=== PATIENT | male | born 1975 | race Caucasian/White ===

== ENCOUNTER 2025-01-19 10:13 | Emergency (ER) | payer OTHER ==
[~2025-01-19] VITALS: Ht 167.6 cm; Wt 68.2 kg
[~2025-01-19 10:13] MED LIST: CEPH-558 PO; OMEP-148 PO; SULF1TAB94 PO
[2025-01-19 10:18] VITALS: TEMP 98.2
[2025-01-19 10:50] LABS: COVID AG,FIA SOURCE NASAL SWAB
[2025-01-19 10:54] LABS: PLATELET COUNT (AUTO) 392 K/uL (150-450); RED BLOOD CELL COUNT(AUTO) 5.33 MIL/uL (4.50-5.90); RED CELL DISTRIBUTION WIDTH 13.6 % (11.5-14.5); WHITE BLOOD COUNT (AUTO) 7.4 K/uL (4.5-11.0)
[2025-01-19 10:54] LABS: APPEARANCE,URINE CLEAR (CLEAR); GLUCOSE, URINE (UA) NEGATIVE (NEGATIVE); LEUKOCYTE ESTERASE ,URINE NEGATIVE (NEGATIVE); NITRATE,URINE NEGATIVE (NEGATIVE); OCCULT BLOOD,URINE TRACE (NEGATIVE); SPECIFIC GRAVITIY, URINE 1.030 (1.003-1.030)
[2025-01-19 11:04] LABS: CALCIUM, TOTAL 9.3 mg/dL (8.8-10.5); CREATININE 1.02 mg/dL (0.60-1.30); GLOMERULAR FILTR. RATE CALC > 60 mL/min (>60); GLUCOSE,RANDOM 163 mg/dL (70-110); SODIUM SERUM 139 mmol/L (136-145); UREA NITROGEN, BLOOD 17 mg/dL (7-18)
[2025-01-19 11:35] LABS: SARS-COV2 (COVID) ANTIGEN,FIA Negative (Negative)
[2025-01-19 11:36] LABS: INFLUENZA TYPE A NEGATIVE FOR TYPE A (NEGATIVE); INFLUENZA TYPE B NEGATIVE FOR TYPE B (NEGATIVE)
[2025-01-19 11:48] VITALS: BP 127/87; PULSE 90; RESP 18; O2SAT 100
[2025-01-19] MEDS: IBUPROFEN 400 MG TABLET PO ONE (11:51)
[2025-01-19] MEDS: ACETAMINOPHEN 500 MG TABLET PO ONE (11:51)
== END 2025-01-19 12:22 | disposition home or self-care (01) ==
LOC: EMS 10:13
DX: J06.9 Acute upper respiratory infection, unspecified (principal); B97.89 Other viral agents as the cause of diseases classified elsewhere; K21.9 Gastro-esophageal reflux disease without esophagitis; F15.90 Other stimulant use, unspecified, uncomplicated; Z87.891 Personal history of nicotine dependence; Z20.822 Contact with and (suspected) exposure to COVID-19
CPT/HCPCS: 80048; 81001; 85025; 87804; 99283